=== PATIENT | female | born 1985 | race Caucasian/White ===

== ENCOUNTER 2018-05-26 06:12 | Inpatient (IN) ==
[2018-05-26] MEDS ORDERED: Famotidine 20 MG/2 ML VIAL IVP PRN (06:13)
[2018-05-26] MEDS ORDERED: CeFAZolin Premix DUPLEX 2,000 MG/50 ML BAG IVPB ONE (06:13)
[2018-05-26] MEDS ORDERED: Naloxone 0.4 MG/ML INJ IVP PRN ×2 (06:13→08:49)
[2018-05-26] MEDS ORDERED: Ringers Solution, Lactated 1,000 ML IVC SCH (06:15)
[2018-05-26 06:49] LABS: Basophils % 0.1 %; Eosinophils # 0.1 K/mcL (0.0-0.6); Eosinophils % 1.1 %; Hematocrit 33.1 % (35.3-44.9); Immature Granulocytes % 0.8 % (0-4); Lymphocytes % 21.2 %; Mean Corpuscular HGB Conc 33.2 g/dL (31.6-35.5); Mean Corpuscular Hemoglobin 28.7 pg (28.0-33.3); Mean Corpuscular Volume 86.4 fL (83.0-100.0); Monocytes # 0.9 K/mcL (0.0-1.3); Monocytes % 9.1 %; Neutrophils # 6.4 K/mcL (1.6-8.9); Platelet Count 223 K/mcL (140-400); Red Blood Count 3.83 M/mcL (3.82-4.97); Red Cell Distribution Width 14.3 % (11.5-14.5); Segmented Neutrophils % 67.7 %
--- NOTE | 2018-05-26 07:22 | OB/GYN History & Physical ---
Date of Encounter: 05/26/18 Time of Encounter: 07:16 Assessment and Plan (1) 39 weeks gestation of Current visit: Yes Status: Acute Plan for repeat , Tubal Ligation today History of Present Illness Chief complaint: Repeat HPI: Ms. Mercado is a 33 year old female who presents at 39 weeks 0 days for a repeat , tubal ligation. Pt has been seen throughout with Dr. Lilly. Endorses + FM. Denies vaginal bleeding, leakage of clear fluid. Pt notes previous twin delivered via . States that she felt very nauseous immediately post- after previous . Currently denies headache, blurry vision, SOB, chest pain, nausea, vomiting. Labs: Blood Type: A positive; Rh Ab negative GBS negative Hep B Surf Ag negative Treponema negative Varicella Immune Rubella Immune Past Med Surg Social Fam HX - Past Medical History Attestation: Yes The following information was validated with the patient. Source: patient Medical history: no medical history Psychiatric history: no psych history - Past Surgical History Surgical History: , other Additional surgical history: laporoscopy, Right foot - Social History Smoking Status: Never smoker Smokeless Tobacco Status: No Alcohol use: none Drug use: none - Family History Father Living Status: Still Living Hx Family Cardiac Disorders: Yes (HTN) Obstetrical History - Pregnancies : 2 Para: 1 Term: 1 : 0 Ab's: 0 Livin Medications and Allergies No Known Home Drugs 05/26/18 [History] 3 Allergy/AdvReac Type Severity Reaction Status Date / Time No Known Allergies Allergy Verified 05/26/18 06:25 Review of System OB All systems PM: reviewed and no additional remarkable complaints except as stated Exam - Constitutional Constitutional: well developed, well nourished, no acute distress, average body habitus - HEENT HEENT: EOMI, PERRL, Normocephaly - Neck Neck exam: full ROM - Lungs Respiratory exam: CTAB - Cardiovascular Cardiovascular exam: RRR, +S1, +S2 - Abdomen Abdomen: Present: bowel sounds normal, gravid, non tender - Extremities Extremities exam: normal capillary refill, normal inspection, radial pulses palpable and symmetrical Deep Tendon Reflex Grade: 2+ Normal Results Result Diagrams: 05/26/18 06:30 Abnormal lab results Hgb 11.0 g/dL (11.5-15.4) L 05/26/18 06:30 Hct 33.1 % (35.3-44.9) L 05/26/18 06:30 All other labs normal. - VTE Reasons for not Prescribing Prophylaxis: Treatment not Indicated - Low risk for VTE
[2018-05-26] MEDS: Metoclopramide 10 MG/2 ML VIAL IVP PRN ×2 (07:23→11:07)
--- NOTE | 2018-05-26 07:26 | Anesthesia Evaluation PreOp ---
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 Other Medical History: Denies Any Significant HX Anesthesia History: No Prior Anesthetic Complications, Past Anesthesia ( Laparoscopy, foot surgery) : Yes (, 39 weeks) Alcohol Use: none Drug use: none Medications and Allergies No Known Home Drugs 05/26/18 [History] 3 Allergy/AdvReac Type Severity Reaction Status Date / Time No Known Allergies Allergy Verified 05/26/18 06:25 Anesthesia Results - Labs 05/26/18 06:30 Anesthesia Exam O2 Sat Height 1.7 m Weight 86.273 kg BP 110/70 Height: 67 Weight: 190 NPO (# of Hours): greater than 8 hours - HEENT Pupil (Motor): Pupils equal Mallampati: I Teeth: Normal Oral Opening: Greater than 3 - AUTOMATIC RIVETING MACHINE OPERATOR LOC: Oriented AUTOMATIC RIVETING MACHINE OPERATOR Motor: Normal RUE, Normal LUE, Normal RLE, Normal LLE, Normal Face AUTOMATIC RIVETING MACHINE OPERATOR Sensory: Normal: RUE, LUE, RLE, LLE, Face - Cardiac Rhythm: Regular Murmur: None JVD: No Carotid Bruit: No - Pulmonary Breath Sounds: bilateral Clear Respiratory Effort: Symmetrical Anesthesia Assess/Plan ASA Score: 2 Modified Michelle Scale for Level of Consciousness: Cooperative, oriented, and tranquil Anesthetic Plan: Regional Monitoring Plan: Standard Monitors Recovery Plan: PACU
[2018-05-26] MEDS ORDERED: *HR* Morphine Sulfate/PF 10 MG/10 ML AMPUL ONE (07:32)
[2018-05-26] MEDS ORDERED: *HR* FentaNYL (PF) 100 MCG/2 ML VIAL ONE (07:32)
[2018-05-26] MEDS ORDERED: Lidocaine -MPF 2% 5 ML VIAL ONE (07:43)
[2018-05-26] MEDS ORDERED: *HR* Phenylephrine 10 MG/ML VIAL ONE (07:44)
[2018-05-26] MEDS ORDERED: EPHEDrine 50 MG/ML VIAL ONE (07:55)
[2018-05-26] MEDS ORDERED: Ondansetron 4 MG/2 ML VIAL ONE (08:01)
[2018-05-26] MEDS ORDERED: *HR* Oxytocin 10 UNIT/ML VIAL IM ONE (08:11)
[2018-05-26] MEDS ORDERED: Ringers Solution, Lactated 1,000 ML ONE (08:11)
[2018-05-26 08:12] LABS: Amphetamine Screen,Urine Negative ng/mL (Cutoff=1000); Barbiturate Screen,Urine Negative ng/mL (Cutoff=200); Benzodiazepines Screen,Urine Negative ng/mL (Cutoff=200); Cannabinoid Screen,Urine Negative ng/mL (Cutoff = 50); Cocaine Screen,Urine Negative ng/mL (Cutoff= 300); Opiate Screen,Urine Negative ng/mL (Cutoff=300); Phencyclidine Screen,Urine Negative ng/mL (Cutoff=25)
[2018-05-26] MEDS ORDERED: Ondansetron 4 MG/2 ML VIAL IVP ONE (08:14)
[2018-05-26] MEDS ORDERED: *HR* Promethazine 25 MG/ML VIAL IVP PRN (08:14)
[2018-05-26] MEDS ORDERED: Metoclopramide 10 MG/2 ML VIAL IVP PRN (08:49)
[2018-05-26] MEDS ORDERED: Rho Immune Globulin 1,500 UNIT SYRINGE IM ONE (08:49)
[2018-05-26] MEDS ORDERED: Simethicone 80 MG TAB.CHEW PO PRN (08:49)
[2018-05-26] MEDS ORDERED: Ondansetron 4 MG/2 ML VIAL IVP PRN (08:49)
[2018-05-26] MEDS ORDERED: Sennosides 8.6 MG TABLET PO PRN (08:49)
--- NOTE | 2018-05-26 08:54 | OB/GYN Procedure Note ---
Section - Date of procedure: 05/26/18 Preop diagnosis: desires repeat , desires sterilization Post-op diagnosis: same Procedure: section, repeat low transverse, bilateral tubal ligation Surgeon: Liam Bui Blood Loss: 500 Was there an carpenter assistant installer present: Yes Carpet Repairer: Mata Mcmahon Land Development Manager: Stiven Hays Anesthesia Type: Spinal section complications: none Disposition: L&D Recovery Room Specimens: Placenta, Right tube segment, Left tube segment - (s) Infant A Infant Delivery Date: 05/26/18 Infant Delivery Time: 08:10 Presentation: vertex Gender: Female Gram Weight: 3260 kg at 1 minute: 7 at 5 minutes: 8 Shoulder Dystocia: not encountered Cord: nuchal cord, 3 umbilical vessels - Narrative Narrative: Patient's 33-year-old 2 now para 3 female 39 weeks gestation presents for repeat and bilateral partial salpingectomy. She was aware operative risks permanence of tubal ligation with risk of failure and desired to proceed. She signed appropriate consent. Description procedure: Patient was taken operating room where spinal anesthesia was administered. She was prepped draped in usual sterile fashion bladder was drained of clear urine with [place] catheter. Scalpel was used to make Pfannenstiel skin incision which was sharply taken down the rectus fascia. Fascia was incised midline fascial incision was extended bilaterally. Plan is developed and rectus muscle rectus fascia distally rectus muscle divided midline peritoneum was entered sharply. Peritoneum was extended bilaterally bladder blade was placed and bladder flap was developed and lower uterine segment. Scalpel was used to make a low transverse uterine incision. This was extended bluntly bilaterally. Membranes were ruptured small amount of clear fluid. was delivered from vertex presentation. There was a tight nuchal cord 2 which was easily reduced. Cord was clamped and cut and was handed nurse personnel who were in attendance. Placenta was delivered manually without difficulty. Uterus closed the Vicryl running lock stitch. Irrigation was performed hemostasis was ensured. Approximately 3 cm segment of fallopian tube was double ligated on each side with 0 plain catgut suture. The segments of tube were removed and hemostasis was ensured. This point peritoneum was reapproximated 3-0 Vicryl. Fascia was closed 0 Vicryl. Hemostasis was ensured irrigation was performed. Skin edges reapproximated with 4-0 Vicryl. All sponge and instruments counts are correct patient was taken recovery in good condition
[2018-05-26] MEDS ORDERED: Oxytocin 20 units/ LR 1000 mL 20 UNIT/1,000 ML BAG IVC SCH ×2 (09:00)
[2018-05-26] MEDS: *HR* Morphine 2 MG/ML SYRINGE IVP PRN ×2 (10:06→10:30)
[2018-05-26] MEDS ORDERED: *HR* Promethazine 25 MG/ML VIAL IVP ONE (13:31)
[2018-05-26] MEDS: Ibuprofen 600 MG TABLET PO PRN (20:10)
[2018-05-27] MEDS: Ibuprofen 600 MG TABLET PO PRN ×3 (04:16→16:16)
[2018-05-27 06:58] LABS: Basophils % 0.2 %; Eosinophils % 0.3 %; Hematocrit 28.9 % (35.3-44.9); Immature Granulocytes % 0.6 % (0-4); Lymphocytes # 1.3 K/mcL (0.6-4.6); Lymphocytes % 10.3 %; Mean Corpuscular HGB Conc 32.2 g/dL (31.6-35.5); Mean Corpuscular Hemoglobin 28.2 pg (28.0-33.3); Mean Corpuscular Volume 87.6 fL (83.0-100.0); Mean Platelet Volume 10.9 fL (9.4-12.4); Monocytes # 0.9 K/mcL (0.0-1.3); Monocytes % 7.1 %; Neutrophils # 10.1 K/mcL (1.6-8.9); Platelet Count 174 K/mcL (140-400); Red Cell Distribution Width 14.4 % (11.5-14.5); Segmented Neutrophils % 81.5 %
[2018-05-27 07:18] LABS: Hemoglobin 9.3 g/dL (11.5-15.4)
[2018-05-27] MEDS: Prenatal Vit/FA 1 EACH TABLET PO SCH (09:32)
--- NOTE | 2018-05-27 11:25 | OB/GYN Progress Note ---
Date of Encounter: 05/27/18 Time of Encounter: 11:22 - Assessment and Plan (1) anemia Current Visit: Yes Status: Acute Will increase iron to BID (2) Status post section Current Visit: Yes Status: Acute Stable POD#1 Meeting milestones Continue current management and will increase iron to BID. Subjective - Subjective Interval history: Pt states feels well, pain well managed on po pain medication, tolerates regular diet, bottle feeding. Patient reports: appetite normal, voiding normally, pain well controlled, ambulating normally : doing well, bottle feeding Objective - Vital Signs Latest vital signs: Vital Signs Temp Pulse Resp BP Pulse Ox 05/27/18 07:40 98.3 F 71 16 91/57 96 05/27/18 04:10 98.2 F 75 16 93/55 96 05/27/18 00:15 98.3 F 83 14 105/68 94 05/26/18 21:32 98.6 F 85 16 109/70 97 05/26/18 18:30 98.0 F 80 16 101/64 95 05/26/18 14:30 97.6 F 73 14 105/67 98 05/26/18 13:30 97.8 F 81 14 99/61 98 05/26/18 12:30 97.5 F L 85 16 99/62 98 05/26/18 12:00 97.6 F 86 16 98/56 99 05/26/18 11:30 97.5 F L 82 12 96/60 95 Intake and Output 05/26/18 05/27/18 05/27/18 23:59 07:59 15:59 Intake Total 2562 / 2562 240 / 240 Output Total 650 / 650 1100 / 1100 600 / 600 Balance -650 / -650 1462 / 1462 -360 / -360 Intake: IV Fluids 762 / 762 Lactated Ringers 1,000 ML @ 125 762 / 762 mls/hr IVC .Q8H [facility] Rx#: [id number] Oral 800 / 800 240 / 240 Other 1000 / 1000 Output: Urine 200 / 200 1100 / 1100 600 / 600 Catheter 450 / 450 - Exam Lungs: bilateral: normal Chest: Normal S1, Normal S2 Extremities: Present: normal Abdomen: Present: soft Uterus: Present: firm (U-1) - Labs Labs: Laboratory Results - last 24 hr 05/27/18 06:21 WBC 12.3 H RBC 3.30 L Hgb 9.3 L D Hct 28.9 L MCV 87.6 MCH 28.2 MCHC 32.2 RDW 14.4 Plt Count 174 MPV 10.9 Immature Gran % 0.6 Seg Neutrophils % 81.5 Lymphocytes % 10.3 Monocytes % 7.1 Eosinophils % 0.3 Basophils % 0.2 Neutrophils # 10.1 H Lymphocytes # 1.3 Monocytes # 0.9 Eosinophils # 0.0 Basophils # 0.0
[2018-05-27] MEDS: *HR* OxyCODONE/APAP 5/325 TABLET PO PRN ×2 (13:11→20:50)
[2018-05-28] MEDS: Ibuprofen 600 MG TABLET PO PRN ×2 (02:52→11:35)
[2018-05-28 07:46] VITALS: BP 101/70
[2018-05-28] MEDS: Prenatal Vit/FA 1 EACH TABLET PO SCH (08:33)
--- NOTE | 2018-05-28 12:00 | Discharge Summary ---
Date of Encounter: 05/28/18 Time of Encounter: 11:58 - Discharge Diagnosis (1) 39 weeks gestation of Priority: Secondary Status: Resolved Comments: Pt seen and examined at bedside Ambulating without difficulty Voiding appropriately Normal appetite; Passing flatus, but yet to pass bowel movement Pain controlled with Motrin, Percocet as needed Minimal lochia Counseled on blues, depression Plan to discharge home today (2) anemia Priority: Secondary Status: Acute (3) Status post section Priority: Primary Status: Acute Comments: Pt meeting post-op milestones. Plan to discharge home per pt's request. - Discharge Medications Prescriptions: OxyCODONE/APAP 5/325 [Percocet 5/325 MG] 1 each PO Q4HR PRN 5 Days #30 tablet PRN Reason: Moderate pain 4-6 Ibuprofen [Motrin] 600 mg PO Q6HR PRN 14 Days #60 tablet PRN Reason: Cramping Docusate [Colace] 100 mg PO BID 30 Days #60 capsule Ferrous Sulfate 325 mg PO DAILY 30 Days #30 tablet Home Medications: Docusate [Colace] 100 mg PO BID 30 Days #60 capsule 05/28/18 [Rx] Ferrous Sulfate 325 mg PO DAILY 30 Days #30 tablet 05/28/18 [Rx] Ibuprofen [Motrin] 600 mg PO Q6HR PRN 14 Days #60 tablet 05/28/18 [Rx] OxyCODONE/APAP 5/325 [Percocet 5/325 MG] 1 each PO Q4HR PRN 5 Days #30 tablet [Rx] Allergies/Adverse Reactions: 3 Allergy/AdvReac Type Severity Reaction Status Date / Time No Known Allergies Allergy Verified 05/26/18 06:25 Data Procedures and tests throughout hospitalization: Laboratory Tests 05/26/18 05/26/18 05/27/18 06:30 06:30 06:21 WBC 9.5 12.3 H RBC 3.83 3.30 L Hgb 11.0 L 9.3 L D Hct 33.1 L 28.9 L MCV 86.4 87.6 MCH 28.7 28.2 MCHC 33.2 32.2 RDW 14.3 14.4 Plt Count 223 174 MPV 11.0 10.9 Immature Gran % 0.8 0.6 Seg Neutrophils % 67.7 81.5 Lymphocytes % 21.2 10.3 Monocytes % 9.1 7.1 Eosinophils % 1.1 0.3 Basophils % 0.1 0.2 Neutrophils # 6.4 10.1 H Lymphocytes # 2.0 1.3 Monocytes # 0.9 0.9 Eosinophils # 0.1 0.0 Basophils # 0.0 0.0 Urine Opiates Screen Negative Ur Barbiturates Screen Negative Ur Phencyclidine Scrn Negative Ur Amphetamines Screen Negative U Benzodiazepines Scrn Negative Urine Cocaine Screen Negative U Marijuana (THC) Screen Negative Ur Drug Screen Interp See Below Date of admission: 05/26/18 06:12 Discharging clinician: Nuris Montanez) Anticipated date of discharge: 05/28/18 - Patient Status Disposition: Home, Self-Care Condition: Good Functional capacity at discharge: independent ambulation Overall status at discharge: patient is progressing back to baseline - Discharge Instructions Follow Up With: Liam Lilly MD [Partnered Physician] - Additional Instructions: . - Diet and Activity Activity: resume usual activities as tolerated Diet: advance to your usual diet Hospital Course Reason for admission: section Delivery: section Episiotomy: none Laceration: none Other procedures: tubal ligation complications: none Discharge diagnosis: IUP at term delivered baby: female Hospital course: 33 y/o F presented at 39 weeks gestational age for repeat low transverse section and b/l tubal ligation with Dr. Lilly. Procedure performed , delivered with nuchal cord reduction x 1, followed by partial salpingectomy. Female born, 3260g, with apgars 7/8. Post-op day 1, pt Ferrous Sulfate increased to BID. Mother and baby currently stable post- . Plan to discharge home today. Time Attestation: Total time spent providing and/or coordinating discharge services: Time Spent: Less than 30 minutes - VTE Reasons for not Prescribing Prophylaxis: Treatment not Indicated - Low risk for VTE Documentation of Mechanical Device: Intermittent pneumatic compression device - Attending Attestation I have seen pt independent of resident. I agree with the assessment and plan as outlined. Discharge home today with precautions. Exam - Constitutional Vitals: Temp Pulse Resp BP Pulse Ox 98.2 F 74 14 101/70 99 05/28/18 07:45 05/28/18 07:45 05/28/18 07:45 05/28/18 07:45 05/28/18 07:45 General appearance IM: cooperative, A&O X 3, pleasant, no acute distress, answers questions appropriately - Respiratory Respiratory exam: Present: CTAB - Cardiovascular Cardiovascular exam IM: Present: RRR, +S1, +S2 - GI/Abdominal GI/Abdominal exam IM: normal bowel sounds, soft Incision: normal, dry, intact - Uterine Tone: Firm Uterus Position: At Umbilicus - Extremities Exam Extremities exam IM: Present: full ROM, normal capillary refill, normal inspection, warm, radial pulses palpable and symmetrical Additional comments: Mild B/L Swelling - Neurological Exam Neurological exam: alert, oriented X3 - Psychiatric Additional comments: Normal mood and affect
== END 2018-05-28 14:30 | disposition home or self-care (01) | DRG 766 ==
LOC: 1NENULAB 06:12 → 1NENUOBS 11:30
PROVIDERS: ADMIT Obstetrics & Gynecology; ATTEND Obstetrics & Gynecology